=== PATIENT | female | born 1970 | race Caucasian/White ===

== ENCOUNTER 2020-01-23 13:43 | Emergency (ER) | payer BC, OTHER ==
[~2020-01-23] VITALS: Ht 170.2 cm; Wt 89.5 kg
[~2020-01-23 13:43] MED LIST: IBUP-1027 PO; PROG100C15 PO
[2020-01-23] MEDS ORDERED: MORPHINE SULFATE 2 MG/ML VIAL. IV/SQ PRN (14:15)
[2020-01-23] MEDS ORDERED: NITROGLYCERIN SUBLINGUAL 0.4 MG BOTTLE OF 25. SL PRN (14:15)
[2020-01-23 14:40] LABS: CALCIUM 8.6 mg/dL (8.5-10.1); CREATININE 1.2 mg/dL (0.6-1.0); GFR 47.7; POTASSIUM 3.8 mmol/L (3.5-5.1)
[2020-01-23 14:42] LABS: BILIRUBIN,URINE NEGATIVE (NEG); CLARITY,URINE CLEAR; COLOR,URINE YELLOW; NITRITE,URINE NEGATIVE (NEG); PH,URINE 6.5 (<5.0-8.0); PROTEIN,URINE NEGATIVE (NEG-TRACE); UROBILINOGEN,URINE 0.2 mg/dL (0.2 mg/dL)
[2020-01-23 14:49] LABS: BACTERIA,URINE MOD /HPF (0-FEW); RBC,URINE 0 /HPF (0-2); SQUAMOUS EPITHELIAL CELL,UR MOD /LPF
[2020-01-23 14:50] LABS: BARBITURATES NEG (NEG); BENZODIAZEPINES NEG (NEG); CANNABINOIDS NEG (NEG); COCAINE NEG (NEG); METHADONE NEG (NEG); OPIATES NEG (NEG); PHENCYCLIDINE NEG (NEG)
[2020-01-23 14:54] LABS: AMPHETAMINE/METHAMPHETAMINE NEG (NEG)
[2020-01-23 14:57] LABS: ALBUMIN 3.3 g/dL (3.4-5.0); C-REACTIVE PROTEIN 2.1 mg/L (0-3.3); TOTAL BILIRUBIN 0.3 mg/dL (0.2-1.0); TOTAL PROTEIN 6.7 g/dL (6.4-8.2)
--- NOTE | 2020-01-23 15:03 | RAD ---
EXAM: CHEST 1 VIEW History: Chest pain COMPARISON: None available. TECHNIQUE: Single portable radiograph of the chest FINDINGS: The cardiac silhouette is unremarkable. The lungs are clear bilaterally. The costophrenic sulci are clear and well demarcated. IMPRESSION: No radiographic evidence of an acute cardiopulmonary process. Electronically signed by: Milind Costa MD (01/23/2020 3:00 PM) [id number]
--- NOTE | 2020-01-23 15:22 | EKG ---
[facility] [address] [place] [address] Test Date: 2020-01-23 Test Time: 14:05:54 Pat Name: POLLY ARRIETA Department: Room: Gender: F Frame Wirer: : 1970 Requested By: STACEY CHERRY Order Number: [id number] Reading MD: Tom Mckeon MD Measurements Intervals [place] Rate: 72 P: 53 NC: 152 QRS: 31 QRSD: 76 T: 23 QT: 374 QTc: 411 Interpretive Statements SINUS RHYTHM Electronically Signed On 01-24-2020 12:01:48 CDT by Tom Mckeon MD
[2020-01-23 15:33] LABS: BASO % 1 % (0-3); EOS # 0.2 x10^3/uL (0.0-0.7); EOS % 3 % (0-3); HEMATOCRIT 42.6 % (36.0-47.0); HEMOGLOBIN 14.4 g/dL (12.0-15.5); LYMPH # 2.4 x10^3/uL (1.0-4.8); LYMPH % 32 % (24-48); MEAN CORPUSCULAR HEMOGLOBIN 30 pg (25-35); MEAN CORPUSCULAR HGB CONC 34 g/dL (31-37); MEAN CORPUSCULAR VOLUME 89 fL (79-100); MONO # 0.6 x10^3/uL (0.0-1.1); MONO % 8 % (0-9); NEUT # 4.4 x10^3/uL (1.8-7.7); NEUT % 57 % (31-73); PLATELET COUNT 227 x10^3/uL (140-400); RED BLOOD COUNT 4.81 x10^6/uL (3.50-5.40); RED CELL DISTRIBUTION WIDTH 13.4 % (11.5-14.5); WHITE BLOOD COUNT 7.6 x10^3/uL (4.0-11.0)
--- NOTE | 2020-01-23 15:49 | PHYS DOC ---
Past Medical History Past Medical History: No Pertinent History Past Surgical History: Oophorectomy Smoking Status: Never Smoker Alcohol Use: None Drug Use: None General Adult EDM: Chief Complaint: CHEST PAIN HPI: HPI: Patient is a 49 year old female with no significant medical history who presen ts to the ED today with multiple complaints. 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 Patient denies any chest pain or shortness of breath. Denies any pain to her arm right now. Review of Systems: Review of Systems: Constitutional: Denies fever or chills. [] Eyes: Denies change in visual acuity. [] HENT: Denies nasal congestion or sore throat. [] Respiratory: Denies cough or shortness of breath. [] Cardiovascular: Denies chest pain or edema. [] GI: Denies abdominal pain, nausea, vomiting, bloody stools or diarrhea. [] : Denies dysuria. [] Musculoskeletal: Reports left arm pain. Denies back pain or joint pain. [] Integument: Denies rash. [] Neurologic: Reports weakness and lightheadedness. Denies headache, sensory changes. [] Psychiatric: Denies depression or anxiety. [] Heart Score: HEART Score for Chest Pain: HEART Score for Chest Pain Response (Comments) Value History Slighlty/Non-Suspicious 0 ECG Normal 0 Age >45 - < 65 1 Risk Factors No Risk Factors 0 Troponin < Normal Limit 0 Total 1 Risk Factors: Risk Factors: DM, Current or recent (<one month) smoker, HTN, HLP, family history of CAD, obesity. Risk Scores: Score 0 - 3: 2.5% MACE over next 6 weeks - Discharge Home Score 4 - 6: 20.3% MACE over next 6 weeks - Admit for Clinical Observation Score 7 - 10: 72.7% MACE over next 6 weeks - Early Invasive Strategies Current Medications: Current Medications Medications (Trade) Dose Ordered Sig/Christie Start Time Stop Time Status Last Admin Dose Admin Morphine Sulfate (Morphine Sulfate) 2 mg PRN Q15MIN PRN 01/23/20 14:15 01/24/20 14:14 Nitroglycerin (Nitrostat) 0.4 mg PRN Q5MIN PRN 01/23/20 14:15 01/24/20 14:14 Allergies: Allergies: Allergies Coded Allergies Type Severity Reaction Last Updated Verified gluten Allergy Intermediate STOMACH UPSET 05/24/16 Yes corn Adverse Reaction Intermediate constipation and diarrhea 05/24/16 Yes Physical Exam: PE: Constitutional: Well developed, well nourished, no acute distress, non-toxic appearance. [] HENT: Normocephalic, atraumatic, bilateral external ears normal, oropharynx moist, no oral exudates, nose normal. [] Eyes: PERRLA, EOMI, conjunctiva normal, no discharge. [] Neck: Normal range of motion, no tenderness, supple, no stridor. [] Cardiovascular:Heart rate regular rhythm, no murmur [] Lungs & Thorax: Bilateral breath sounds clear to auscultation [] Abdomen: Bowel sounds normal, soft, no tenderness, no masses, no pulsatile masses. [] Skin: Warm, dry, no erythema, no rash. [] Back: No tenderness, no CVA tenderness. [] Extremities: No tenderness, no cyanosis, no clubbing, ROM intact, no edema. [] Neurologic: Alert and oriented X 3, normal motor function, normal sensory function, no focal deficits noted. [] Psychologic: Affect normal, judgement normal, mood normal. [] Current Patient Data: Labs: Laboratory Tests Test 01/23/20 14:15 01/23/20 14:21 Urine Collection Type Unknown Urine Color Yellow Urine Clarity Clear Urine pH 6.5 (<5.0-8.0) Urine Specific [place] <=1.005 (1.000-1.030) Urine Protein Negative mg/dL (NEG-TRACE) Urine Glucose (UA) Negative mg/dL (NEG) Urine Ketones (Stick) Negative mg/dL (NEG) Urine Blood Negative (NEG) Urine Nitrite Negative (NEG) Urine Bilirubin Negative (NEG) Urine Urobilinogen Dipstick 0.2 mg/dL (0.2 mg/dL) Urine Leukocyte Esterase Negative (NEG) Urine RBC 0 /HPF (0-2) Urine WBC 5-10 /HPF (0-4) Urine Squamous Epithelial Cells Mod /LPF Urine Bacteria Mod /HPF (0-FEW) Sodium Level 138 mmol/L (136-145) Potassium Level 3.8 mmol/L (3.5-5.1) Chloride Level 104 mmol/L (98-107) Carbon Dioxide Level 24 mmol/L (21-32) Anion Gap 10 (6-14) Blood Urea Nitrogen 18 mg/dL (7-20) Creatinine 1.2 mg/dL (0.6-1.0) H Estimated GFR (Cockcroft-Gault) 47.7 BUN/Creatinine Ratio 15 (6-20) Glucose Level 115 mg/dL (70-99) H Calcium Level 8.6 mg/dL (8.5-10.1) Magnesium Level 2.0 mg/dL (1.8-2.4) Ferritin 141 ng/mL (8-252) Total Bilirubin 0.3 mg/dL (0.2-1.0) Aspartate Amino Transferase (AST) 25 U/L (15-37) Alanine Aminotransferase (ALT) 43 U/L (14-59) Alkaline Phosphatase 96 U/L (46-116) Creatine Kinase 115 U/L (26-192) Creatine Kinase MB (Mass) 1.5 ng/mL (0.0-3.6) Creatine Kinase MB Relative Index 1.3 % (0-4) Troponin I Quantitative < 0.017 ng/mL (0.000-0.055) C-Reactive Protein, Quantitative 2.1 mg/L (0-3.3) ZB-Oxr-V-Type Natriuretic Peptide 178 pg/mL (0-124) H Total Protein 6.7 g/dL (6.4-8.2) Albumin 3.3 g/dL (3.4-5.0) L Albumin/Globulin Ratio 1.0 (1.0-1.7) Thyroid Stimulating Hormone (TSH) 0.759 uIU/mL (0.358-3.74) Urine Opiates Screen Neg (NEG) Urine Methadone Screen Neg (NEG) Urine Barbiturates Neg (NEG) Urine Phencyclidine Screen Neg (NEG) Urine Amphetamine/Methamphetamine Neg (NEG) Urine Benzodiazepines Screen Neg (NEG) Urine Cocaine Screen Neg (NEG) Urine Cannabinoids Screen Neg (NEG) Urine Ethyl Alcohol Neg (NEG) POC Urine HCG, Qualitative Hcg negative (Negative) Laboratory Tests 01/23/20 14:15 Vital Signs: Vital Signs Date Time Temp Pulse Resp B/P (MAP) Pulse Ox O2 Delivery O2 Flow Rate FiO2 01/23/20 13:59 97.9 71 18 140/69 (92) 99 Room Air 97.9 EKG: EKG: [] Radiology/Procedures: Radiology/Procedures: []PROCEDURE: PORTABLE CHEST 1V EXAM: CHEST 1 VIEW History: Chest pain COMPARISON: None available. TECHNIQUE: Single portable radiograph of the chest FINDINGS: The cardiac silhouette is unremarkable. The lungs are clear bilaterally. The costophrenic sulci are clear and well demarcated. IMPRESSION: No radiographic evidence of an acute cardiopulmonary process. Electronically signed by: Milind Costa MD (01/23/2020 3:00 PM) [id number] DICTATED and SIGNED BY: MILIND COSTA MD DATE: 01/23/20 1500 Course & Med Decision Making: Course & Med Decision Making Pertinent Labs and Imaging studies reviewed. 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 She states at the same time she became weak and was lightheaded. Patient's labs are negative for any acute findings, EKG is negative, chest x-ray is negative. COVID19 testing pending. Patient was discharged home. Instructed to follow-up with the PCP in 1 week. Instructed to rest, maintain good hand hygiene and push fluids. Dragon Disclaimer: Dragon Disclaimer: This electronic medical record was generated, in whole or in part, using a voice recognition dictation system. COVID-19 Patient Risks: Age 65 or older: No Sign of co-morbidity: No Exp to person + for COVID: No Exp to PUI: No Travel from affected area: No Lower respiratory symptoms: No Fever: No Other: Yes Comments: works at [employer] PPE Use: Full PPE with N95 mask or PAPR: Yes Departure Departure Impression: Primary Impression: Weakness Additional Impressions: Person under investigation for COVID-19 Arm pain, left Disposition: 01 HOME, SELF-CARE Condition: STABLE Referrals: NGUYEN KIM PA-C (PCP) follow up in 1 week Patient Instructions: Weakness, [id number] Additional Instructions: You were evaluated in the emergency room, your work-up was negative for any acute findings. We encourage you to rest, push fluids, maintain good hand hygiene. Please follow-up with your doctor in the next 1 week. Your COVID19 t est is pending. If positive you will be notified. STACEY CHERRY APRN January 23, 2020 15:49
[2020-01-23 16:31] VITALS: BP 146/87
== END 2020-01-23 16:40 | disposition home or self-care (01) ==
LOC: ER 13:43
DX: M79.602 Pain in left arm (principal); R53.1 Weakness; R42 Dizziness and giddiness; Z90.89 Acquired absence of other organs; Z88.8 Allergy status to other drugs, medicaments and biological substances; Z91.018 Allergy to other foods; Z20.828 Contact with and (suspected) exposure to other viral communicable diseases
CPT/HCPCS: 36415; 71045; 80053; 80307; 81001; 81025; 82553; 82728; 83735; 83880; 84443; 84484; 85025; 86140; 87635; 93005; 99285

== ENCOUNTER → 2020-11-07 | Outpatient (CLI) | payer BC ==
--- NOTE | 2020-11-10 03:23 | RAD ---
Study: XR CERVICAL SPINE 4-5V Indication: Cervical pain and radiculopathy. Comparison: None. Findings: No acute fracture. Grade 1 anterolisthesis of C3 on C4. Trace anterolisthesis of C6 on C7. No signifi cant disc space narrowing. Normal atlantodental interval and alignment across the C1-C2 lateral matilda s. The dens is intact. Scattered uncovertebral joint hypertrophy such as on the right more so than left at C3-C4 and on the left more so than right at C5-C6. Multilevel facet arthrosis with osseous neural foraminal encroachme nt on the right greatest at C4-C5 and to a lesser extent on the left at C3-C4 and C4-C5. Normal thickness of the prevertebral soft tissues. Unremarkable epiglottis and lung apices. Impression: 1. No acute fracture. Degenerative grade 1 anterolisthesis of C3 on C4 more so than C6 on C7. 2. Multilevel degenerative changes most notably involving the facet joints with osseous neural forami nal encroachment appearing greatest on the right at C4-C5. Electronically signed by: FRANCISCO LUCAS MD (11/10/2020 3:21 AM) [facility]
== END ==
LOC: RAD 11:17
PROVIDERS: ATTEND Physician Assistant Medical
DX: M47.22 Other spondylosis with radiculopathy, cervical region (principal); M43.12 Spondylolisthesis, cervical region; M89.38 Hypertrophy of bone, other site; M12.88 Other specific arthropathies, not elsewhere classified, other specified site; R51.9 Headache, unspecified
CPT/HCPCS: 72050